=== PATIENT | male | born 1975 | race Caucasian/White ===

== ENCOUNTER 2020-08-07 08:32 | Day surgery (SDC) | payer BC ==
--- NOTE | 2020-08-07 08:00 | HP ---
DATE OF SURGERY: 08/07/2020 HISTORY OF PRESENT ILLNESS: The patient is a 45 year-old who recently had food stuck in the upper esophagus, some reflux that has been going on for a few weeks. No prior endoscopy. Family history negative for esophageal cancer. PAST MEDICAL HISTORY: Diabetes. Chronic back and shoulder problems. PAST SURGICAL HISTORY: Shoulder surgery in the past. MEDICATIONS: Metformin, Trulicity, gabapentin, simvastatin, Invokana, amitriptyline, ibuprofen. ALLERGIES: NKDA. FAMILY HISTORY: Diabetes, cancer. SOCIAL HISTORY: One pack per day smoker. Denies alcohol abuse. REVIEW OF SYSTEMS: Fourteen systems reviewed. No chest pain or palpitations. Other systems negative or noncontributory as above and per preadmission questionnaire. PHYSICAL EXAMINATION: GENERAL: No acute distress. HEENT: Sclerae nonicteric. NECK: No JVD. CHEST: Equal excursion, nonlabored breathing. There is a large anterior mid-chest question of lymphoma that he has had for some time. CVS: Regular rate and rhythm. ABDOMEN: Soft. No peritoneal signs. EXTREMITIES: No significant edema. NEURO: Alert, oriented, moving extremities symmetrically. PSYCH: Appropriate mood and affect. IMPRESSION: Dysphagia. I feel the patient would benefit from EGD, possible biopsy possible dilatation. Risks and benefits explained in detail including but not limited to bleeding or infection, risk of bowel injury or perforation possibly requiring open procedure, risk of missed or nondiagnosis or incomplete exam possibly requiring barium swallow, other studies or procedures. General risk of anesthesia or sedation, risk of bowel prep but not limited to, consent obtained, will proceed with EGD possible biopsy, possible dilatation as an outpatient. He understands if this improves his swallowing it may need to be repeated again down the road. There is a possibility that dilatation may not improve his symptoms but may be more functional or neurologic issue, metastasis, cyst or narrowing that may need different type of dilatation in the future. He understands and agrees to the planned procedure, will proceed with EGD possible possible dilatation as an outpatient.
[~2020-08-07 08:32] MED LIST: Lactated Ringers 1,000 ML IV ONE; Lactated Ringers 1,000 ML IV SCH
[2020-08-07] MEDS ORDERED: DIPRIVAN 200 MG/20 ML IV ONE ×2 (10:30→10:43)
[2020-08-07] MEDS ORDERED: Xylocaine-Mpf 2% 5 Ml Vial ONE (10:30)
[2020-08-07 11:38] VITALS: BP 156/85; PULSE 85; O2SAT 97
--- NOTE | 2020-08-08 07:33 | OP ---
SURGERY DATE/TIME: 08/07/2020 1034 PREOPERATIVE DIAGNOSIS: Dysphagia. POSTOPERATIVE DIAGNOSES: 1) Minimal to mild gastritis. 2) Distal esophageal narrowing and stricture. 3) Erosive distal esophagitis, path pending to evaluate for neoplasia. PROCEDURES: 1) EGD with cold biopsy of antrum to evaluate for Helicobacter pylori. 2) Multiple cold biopsies distal esophagus to evaluate for path.3) Distal esophageal narrowing and dilatation (size 20 balloon dilator). SURGEON: Dr. Brody Pope. ANESTHESIA: MAC. ESTIMATED BLOOD LOSS: Minimal. INDICATIONS: As noted above. Risks and benefits explained in detail and not limited to and consent obtained. DESCRIPTION OF PROCEDURE AND FINDINGS: The patient is taken to the endoscopy room. MAC anesthesia introduced. After official time out and no disagreement with planned procedure, a bite block positioned. Video gastroscope easily passed down the proximal esophagus. He had a bunch of food in the mid to distal esophagus, had erosive esophagitis whether any of this is neoplasia is unclear. Thick, inflamed extending for 5 cm or so up in the gastroesophageal junction around 40 cm upward. Multiple cold biopsies taken for Helicobacter pylori. The scope was able to be passed in through the second and third portion of the duodenum. Duodenum grossly unremarkable. Scope was pulled back into the stomach and cold biopsy taken in the antrum to evaluate for Helicobacter pylori. Good hemostasis noted. No signs of any ulcers or lesions in the stomach. He did have some food in the stomach as well. It was difficult with the food in the stomach to tell whether he had any significant hiatal hernia or not. The scope is pulled upward. Gastroesophageal junction is about 40 cm. Again, this erosive esophagitis whether any of this is neoplasia or not was difficult to tell. Multiple cold biopsies are taken. Adequate hemostasis noted. It was felt it warranted dilatation. The remainder of the esophagus no signs of any other mucosal lesions on withdrawal up the esophagus. The scope was passed back down in the stomach. The 20 balloon catheter inserted, pulled back up to the distal esophageal narrowed area. It was carefully inflated first stage for 30 seconds, second stage 45 seconds, final stage size 20 balloon dilator for 2 minutes. Balloon catheter was then released and withdrawn. The scope more easily passed through this area. Minimal superficial abrasions and ooze from raw esophagitis. There did not appear to be any gross evidence of any full thickness issues secondary to dilatation. The scope is withdrawn. Stomach decompressed. I discussed with the family the findings.
== END 2020-08-07 11:50 | disposition home or self-care (01) ==
LOC: SDC 08:32
PROVIDERS: ATTEND Surgery
DX: K22.2 Esophageal obstruction (principal); K20.90 Esophagitis, unspecified without bleeding; E11.9 Type 2 diabetes mellitus without complications; Z79.899 Other long term (current) drug therapy; K29.70 Gastritis, unspecified, without bleeding
CPT/HCPCS: 82947; C1726; J2704